=== PATIENT | female | born 1950 | race Caucasian/White ===

== ENCOUNTER 2018-06-13 18:28 | Emergency (ER) | payer MEDICARE, OTHER ==
[2018-06-13] MEDS ORDERED: methylPREDNISolone Sod Succ/PF 125 MG/2 ML VIAL ONE (18:41)
[2018-06-13] MEDS ORDERED: diphenhydrAMINE 50 MG/ML VIAL ONE (18:41)
[2018-06-13] MEDS ORDERED: Albuterol Sulfate 1.25 MG/3 ML NEB ONE (18:41)
[2018-06-13] MEDS ORDERED: EPINEPHrine 1 MG/10 ML Abboject SYRINGE ONE (18:49)
[2018-06-13] MEDS ORDERED: EPINEPHrine 1 mg/ml MDV (1ml Charge) ONE (18:50)
== END 2018-06-13 22:25 | disposition home or self-care (01) ==
LOC: BURERS 18:28
DX: T78.2XXA Anaphylactic shock, unspecified, initial encounter (principal); K21.9 Gastro-esophageal reflux disease without esophagitis; Z87.891 Personal history of nicotine dependence; Z79.899 Other long term (current) drug therapy; Z79.82 Long term (current) use of aspirin
CPT/HCPCS: 94640; 96372; 96374; 96375; J0171; J1200; J2930

== ENCOUNTER 2023-02-08 08:32 | Emergency (ER) | payer MEDICARE, OTHER ==
[2023-02-08] MEDS ORDERED: Ibuprofen 800 MG TAB ONE (08:47)
== END 2023-02-08 09:50 | disposition home or self-care (01) ==
LOC: BURERS 08:32
DX: S43.402A Unspecified sprain of left shoulder joint, initial encounter (principal); K21.9 Gastro-esophageal reflux disease without esophagitis; W20.8XXA Other cause of strike by thrown, projected or falling object, initial encounter